=== PATIENT | female | born 1980 | race Caucasian/White ===

== ENCOUNTER 2018-10-02 07:19 | Emergency (ER) | payer MEDICAID ==
[~2018-10-02] VITALS: Ht 154.9 cm; Wt 70.0 kg
[~2018-10-02 07:19] MED LIST: CEPH500C PO; IBUP-727 PO; [UNRECOGNIZED DRUG - CODE]
[2018-10-02 07:22] VITALS: BP 130/71; PULSE 75; RESP 18; Ht 154.9 cm; Wt 70.0 kg
[2018-10-02] MEDS ORDERED: KETOROLAC 30 MG INJ IV STA (07:38)
[2018-10-02] MEDS ORDERED: FAMOTIDINE 20 MG INJ IV STA (07:38)
[2018-10-02] MEDS ORDERED: SOD CHLORIDE 0.9% 1,000 ML IV STA (07:38)
[2018-10-02] MEDS ORDERED: ONDANSETRON 4 MG INJ IV STA (07:38)
[2018-10-02] MEDS ORDERED: FAMO-96 PO (08:39)
[2018-10-02] MEDS ORDERED: NITR-58 PO (08:40)
--- NOTE | 2018-10-02 08:56 | ERD ---
ER Documentation Chief Complaint Chief Complaint back pain x 2 weeks, ap intermittent x 2 weeks, no vomiting HPI 38-year-old female presenting with back pain x2 weeks. Patient has some epigastric pain that radiates to her back. She denies any vomiting or diarrhea. Denies any chest pain or shortness of breath. Has been taking omeprazole with no alleviation of symptoms. Denies any changes in urination or bowel movement. Denies other medical problems. NKDA. Surgical history denies. Social history denies ROS All systems reviewed and are negative except as per history of present illness. Medications Home Meds Active Scripts Nitrofurantoin Monohyd Macrocr* (Macrobid*) 100 Mg Capsr, 100 MG PO BID for 14 Days, CAP Prov:MIKEY NICHOLS PA-C 10/02/18 Famotidine* (Pepcid*) 20 Mg Tablet, 20 MG PO BID for 4 Days, #30 TAB Prov:MIKEY NICHOLS PA-C 10/02/18 Reported Medications Prednisolone (Prednisolone) 5 Mg Tablet 10/12/11 Ibuprofen (Motrin) 600 Mg Tablet, 600 MG PO PRN 10/12/11 Cephalexin* (Cephalexin*) 500 Mg Capsule, 500 MG PO 4X/DAY 10/12/11 Allergies Allergies: Coded Allergies: No Known Drug Allergy (Verified Allergy, Unknown, 05/04/14) PMhx/Soc History of Surgery: No Anesthesia Reaction: No Hx Neurological Disorder: No Hx Respiratory Disorders: No Hx Cardiac Disorders: No Hx Psychiatric Problems: No Hx Miscellaneous Medical Probl: No Hx Alcohol Use: No Hx Substance Use: No Hx Tobacco Use: No Smoking Status: Never smoker FmHx Family History: No diabetes, No coronary disease, No other Physical Exam Vitals Vital Signs Date Temp Pulse Resp B/P (MAP) Pulse Ox O2 O2 Flow FiO2 Time Delivery Rate 10/02/18 97.1 75 18 130/71 99 07:22 (90) Physical Exam GENERAL: The patient is well-appearing, well-nourished, in no acute distress HEENT: Atraumatic. Conjunctivae are pink. Pupils equal, round, and reactive to light. There is no scleral icterus. Tympanic membranes clear bilaterally. Oropharynx clear. NECK: C-spine is soft and supple. There is no meningismus. There is no cervical lymphadenopathy. CHEST: Clear to auscultation bilaterally. There are no rales, wheezes or rhonchi. HEART: Regular rate and rhythm. No murmurs, clicks, rubs or gallops. ABDOMEN: Normal active bowel sounds. No distention. No organomegaly. Mild tenderness palpation the epigastric region with no rebound tenderness. Result Diagram: 10/02/18 0746 10/02/18 0746 Results 24 hrs Laboratory Tests Test 10/02/18 07:46 10/02/18 07:53 White Blood Count 9.8 10^3/ul Red Blood Count 4.67 10^6/ul Hemoglobin 13.8 g/dl Hematocrit 40.3 % Mean Corpuscular Volume 86.3 fl Mean Corpuscular Hemoglobin 29.6 pg Mean Corpuscular Hemoglobin Concent 34.2 g/dl Red Cell Distribution Width 12.5 % Platelet Count 180 10^3/UL Mean Platelet Volume 9.7 fl Immature Granulocytes % 0.500 % Neutrophils % 74.9 % Lymphocytes % 14.7 % Monocytes % 8.3 % Eosinophils % 1.2 % Basophils % 0.4 % Nucleated Red Blood Cells % 0.0 /100WBC Immature Granulocytes # 0.050 10^3/ul Neutrophils # 7.3 10^3/ul Lymphocytes # 1.4 10^3/ul Monocytes # 0.8 10^3/ul Eosinophils # 0.1 10^3/ul Basophils # 0.0 10^3/ul Nucleated Red Blood Cells # 0.0 10^3/ul Urine Color YELLOW Urine Clarity CLEAR Urine pH 6.0 Urine Specific Makinen 1.018 Urine Ketones NEGATIVE mg/dL Urine Nitrite NEGATIVE mg/dL Urine Bilirubin NEGATIVE mg/dL Urine Urobilinogen NEGATIVE mg/dL Urine Leukocyte Esterase 2+ Trell/ul Urine Microscopic RBC 2 /HPF Urine Microscopic WBC 16 /HPF Urine Bacteria FEW /HPF Urine Hemoglobin NEGATIVE mg/dL Urine Glucose NEGATIVE mg/dL Urine Total Protein NEGATIVE mg/dl Sodium Level 140 mmol/L Potassium Level 4.3 mmol/L Chloride Level 103 mmol/L Carbon Dioxide Level 30 mmol/L Anion Gap 7 Blood Urea Nitrogen 12 mg/dl Creatinine 0.50 mg/dl Est Glomerular Filtrat Rate mL/min > 60 mL/min Glucose Level 80 mg/dl Calcium Level 8.9 mg/dl Total Bilirubin 0.8 mg/dl Direct Bilirubin 0.00 mg/dl Indirect Bilirubin 0.8 mg/dl Aspartate Amino Transf (AST/SGOT) 28 IU/L Alanine Aminotransferase (ALT/SGPT) 40 IU/L Alkaline Phosphatase 72 IU/L Total Protein 7.1 g/dl Albumin 4.2 g/dl Globulin 2.90 g/dl Albumin/Globulin Ratio 1.44 Lipase 118 U/L POC Beta HCG, Qualitative NEGATIVE Current Medications Medications Dose Sig/Flakito Start Time Status Last (Trade) Ordered Route PRN Stop Time Admin Dose Reason Admin Sodium 1,000 ml @ Q1H STAT 10/02/18 DC 10/02/18 Chloride 1,000 mls/hr IV 07:38 10/02/18 08:22 08:37 Ondansetron 4 mg ONCE STAT 10/02/18 DC 10/02/18 HCl (Zofran IV 07:38 10/02/18 08:21 Inj) 07:39 Famotidine 20 mg ONCE STAT 10/02/18 DC 10/02/18 (Pepcid Iv) IV 07:38 10/02/18 08:22 07:39 Ketorolac 30 mg ONCE STAT 10/02/18 DC 10/02/18 Tromethamine IV 07:38 10/02/18 08:22 (Toradol) 07:39 Departure Diagnosis: Primary Impression: UTI (urinary tract infection) Additional Impression: Epigastric pain Condition: Stable Patient Instructions: Understanding Urinary Tract Infections (UTIs), Gerd (Adult) Referrals: [facility] YOU HAVE RECEIVED A MEDICAL SCREENING EXAM AND THE RESULTS INDICATE THAT YOU DO NOT HAVE A CONDITION THAT REQUIRES URGENT TREATMENT IN THE EMERGENCY DEPARTMENT. FURTHER EVALUATION AND TREATMENT OF YOUR CONDITION CAN WAIT UNTIL YOU ARE SEEN IN YOUR DOCTORS OFFICE WITHIN THE NEXT 1-2 DAYS. IT IS YOUR RESPONSIBILITY TO MAKE AN APPOINTMENT FOR FOLOW-UP CARE. IF YOU HAVE A PRIMARY DOCTOR --you should call your primary doctor and schedule an appointment IF YOU DO NOT HAVE A PRIMARY DOCTOR YOU CAN CALL OUR PHYSICIAN REFERRAL HOTLINE AT IF YOU CAN NOT AFFORD TO SEE A PHYSICIAN YOU CAN CHOSE FROM THE FOLLOWING [facility] [address] [facility] [address] [facility] [address] [facility] [address] [facility]. [facility] [address] [facility]. [facility] [address] Additional Instructions: FOLLOW UP WITH YOUR PRIMARY CARE PHYSICIAN TOMORROW.Return to this facility if you are not improving as expected. MIKEY NICHOLS PA-C Oct 02, 2018 08:55
== END 2018-10-02 09:04 | disposition home or self-care (01) ==
LOC: FTE 07:19
DX: N39.0 Urinary tract infection, site not specified (principal)
CPT/HCPCS: 36415; 76705; 80053; 81001; 81025; 83690; 85025; 96361; 96374; 96375; J1885; J2405; J7030; Z7502; Z7610